=== PATIENT | female | born 1980 | race Caucasian/White ===

== ENCOUNTER 2018-03-11 09:38 | Day surgery (SDC) | payer MEDICAID, SELFPAY ==
[2018-03-11] VITALS (7 sets, daily range): BP systolic 137–152; BP diastolic 62–89; PULSE 96–99; RESP 18; TEMP 36.3–36.7; O2SAT 96; BMI 54.4
--- NOTE | 2018-03-11 11:00 | RAD_ITS ---
CLINICAL HISTORY: Female, 37 years old. Lower back pain PROCEDURE: LUMBAR EPIDUROGRAM -L5-S1 FLUOROSCOPY TIME (if supplied): (0:14) minutes. 1 Image. RADIATION DOSAGE (If Supplied By Facility): CTDIvol = ( ) mGy, DLP = ( ) mGycm TECHNIQUE: Contrast is seen in the epidural space at L5-S1. RAD/Spine 1 View Any Level IMPRESSION: Successful lumbar epidural steroid injection under fluoroscopic guidance. Electronically Signed: Fransisca Mendoza MD at 12:01 EDT Tel , Service support ,
[2018-03-11] MEDS: Triamcinolone Acetonide 40 MG/ML Vial ×2 (11:17)
--- NOTE | 2018-03-11 11:23 | SUR.OPER ---
ISOVUE [address] PEARL
== END 2018-03-11 12:06 | disposition home or self-care (01) ==
LOC: SDC 09:39 → AC 09:40
PROVIDERS: Family Provider Nurse Practitioner Family; PCP Nurse Practitioner Family; Visit Provider Anesthesiology Pain Medicine
PROC: 3E0S3BZ Introduction of Anesthetic Agent into Epidural Space, Percutaneous Approach (ICD-10-PCS; CPT 62322; principal; 2018-03-11 10:55)
DX: M51.17 Intervertebral disc disorders with radiculopathy, lumbosacral region (principal); M51.16 Intervertebral disc disorders with radiculopathy, lumbar region; I10 Essential (primary) hypertension; F17.200 Nicotine dependence, unspecified, uncomplicated; G43.909 Migraine, unspecified, not intractable, without status migrainosus; G35 Multiple sclerosis; F41.9 Anxiety disorder, unspecified; F32.9 Major depressive disorder, single episode, unspecified; Z79.891 Long term (current) use of opiate analgesic; Z79.899 Other long term (current) drug therapy
CPT/HCPCS: 62323; 64483; 72020; J7120

== ENCOUNTER → 2018-03-27 11:05 | Outpatient (CLI) | payer MEDICAID, SELFPAY ==
[2018-03-27 11:45] LABS: Amphetamine Urine VISTA NEGATIVE (<1000 ng/mL); Barbiturate Urine VISTA NEGATIVE (< 200 ng/mL); Benzodiazepine Urine VISTA POSITIVE (< 200 ng/mL); Cocaine Urine VISTA NEGATIVE (< 300 ng/mL); Ecstacy Urine VISTA NEGATIVE (< 500 ng/mL); Methadone Urine VISTA NEGATIVE (< 300 ng/mL); PCP Urine VISTA NEGATIVE (< 25 ng/mL); THC Urine VISTA POSITIVE (< 50 ng/mL); Vista UDS pH Range 5
== END ==
PROVIDERS: Family Provider Nurse Practitioner Family; PCP Nurse Practitioner Family; Visit Provider Anesthesiology Pain Medicine
DX: F11.20 Opioid dependence, uncomplicated (principal)
CPT/HCPCS: 80307

== ENCOUNTER 2025-06-08 08:10 | Day surgery (SDC) | payer MEDICAID, SELFPAY ==
[2025-06-08] VITALS (8 sets, daily range): BP systolic 111–181; BP diastolic 66–132; PULSE 16–79; RESP 16–18; TEMP 36.1–36.8; O2SAT 91–95; BMI 47.2
[2025-06-08] MEDS: Lactated Ringers 1,000 ML 15 ML IV (08:39)
--- NOTE | 2025-06-08 08:55 | PRE.ANES_ITS ---
ASA Classification* ASA Classification ASA Classification: 3 Assessment & Plan Anesthesia* Anesthesia Assessment Anesthesia Assessment: Discussed sedation and/or anesthesia options, risks, benefits, and alternatives with patient/parents/legal guardian/POA. Questions invited. The patient/parents/legal guardian/POA seems to understand and agrees to proceed with anesthesia plan. Reviewed the physical assessment, medical history, allergy history and patient home medications list prior to surgery/procedure/anesthetic and documented any changes. Performed airway and anesthesia risk assessments. Anesthesia Type Anesthesia Type: MAC History Source History Obtained from:: Patient and Chart Anesthesia Focused Assessment* Temperature: 97 F Pulse Rate: 79 Blood Pressure: 116/74 Respiratory Rate: 16 Pulse Ox: 95 Oxygen Delivery Method: Room Air Airway Assessment Mouth opens: >3 cm Mallampati Score: II Teeth Condition: Dentures and Upper Neck Range of motion (ROM): Full ROM Labs Anesthesia Preop lab: CBC WBC 10.3 K/mm3 (4.4-11.0) 11/29/16 06:15 11/29/16 RBC 3.35 M/mm3 (4.2-5.4) L 11/29/16 06:15 11/29/16 Hgb 10.1 g/dl (12.0-15.0) L 11/29/16 06:15 7 Hct 30.8 % (37-47) L 11/29/16 06:15 11/29/16 Plt Count 220 K/mm3 (150-450) 11/29/16 06:15 11/29/16 CHEMISTRY Potassium 3.2 mmol/L (3.5-5.1) L 11/29/16 06:15 11/29/16 Sodium 134 mmol/L (136-145) L 11/29/16 06:15 11/29/16 Magnesium 2.3 mg/dL (1.8-2.4) 09/06/15 06:40 09/06/15 BUN 9 mg/dL (7-18) 11/29/16 06:15 11/29/16 Creatinine 0.68 mg/dL (0.55-1.02) 11/29/16 06:15 11/29/16 Glucose 156 mg/dL (70-110) H 11/29/16 06:15 01/20/17 TSH 0.66 uIU/mL (0.358-3.74) 11/27/16 06:06 COAG PT 16.6 SECONDS (11.7-14.9) H 09/06/15 09:45 08/11 06/24 Pre-Assessment Diagnosis/Proposed Procedure Planned Operative Procedure(s): EGD, COLONOSCOPY Anesthesia History 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 When Was Last Pacemaker Check QUESTION #4 FULL TEXT: You/Your Family Experience fever (hyperthermia) with Anesthesia Last Oral Intake Last Oral intake: Last Oral Intake NPO since 05:15 06/08/25 08:29 Meds taken in AM with sips of water? Meds patient instructed to take am of surgery PONV PONV - blending tank tender helper: PONV - blending tank tender helper Female Yes 06/02/25 17:19 HX of Motion Sickness No 06/02/25 17:19 HX of N/V After Surgery No 06/02/25 17:19 Non-Smoker No 06/02/25 17:19 Duration of Surgery greater No 06/02/25 17:19 than 60 minutes Number of Risk Factors 1 06/02/25 17:19 PONV Score Low Risk 06/02/25 17:19 Height & Weight Height & Weight: Anesthesia: Height & Weight Height 5 ft 2 in 06/08/25 08:29 Weight: 117.027 kg 06/08/25 08:29 Body Mass Index (BMI) 47.2 06/08/25 08:29 Respiratory Assessment Respiratory Assessment - blending tank tender helper: Respiratory Tract Infection Hx - blending tank tender helper Hx Respiratory Tract Infection No 06/02/25 17:19 STOP Sleep Apnea STOP Sleep Apnea - blending tank tender helper: STOP Sleep Apnea - blending tank tender helper Hx Hypertension Yes: PER PT, CONTROLLED ON 06/02/25 17:19 MEDS Hx Sleep Apnea No 06/02/25 17:19 CPAP No 03/11/18 11:28 BIPAP No 03/02/18 11:21 Do you snore loudly (louder No 06/02/25 17:19 than talking or can be heard Do you often feel tired/ No 06/02/25 17:19 fatigued/ sleepy during daytime? Has anyone observed you stop No 06/02/25 17:19 breathing during sleep? STOP Results Negative 06/02/25 17:19 QUESTION #5 FULL TEXT : Do you snore loudly (louder than talking or can be heard through closed doors)? 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 Specify any problems Hx of Preganancy in last 3 No 06/02/25 17:19 Months Nurse Filling Out Transfusion MGRIFFITH 06/02/25 17:19 & Questions: Date: 06/02/25 06/02/25 17:19 Time: 17:21 06/02/25 17:19 Patient unable to answer at this time (ie. confused, unrespo /Reproduction History /Reproductive History - blending tank tender helper: /Reproductive Hx- blending tank tender helper Hx Now No 06/02/25 17:19 Gestational Age (in weeks): EDC: Hx Hx Para Hx Section SAB No 06/02/25 17:19 Active Medications Active Medications: Current Medications Generic Name Dose Route Start Last Admin Trade Name Freq PRN Reason Stop Dose Admin Lactated Ringer's 1,000 mls @ 15 mls/hr 06/08/25 08:30 06/08/25 08:39 IV 15 mls/hr .Q48H EUN Administration PFSH Medical History (Updated 06/02/25 @ 17:29 by Kirsten Watkins) ADHD Marijuana use Arthritis Fatty liver High cholesterol Migraine headache Wears partial dentures Wears dentures History of diverticulitis Gastric reflux Smoker Shortness of breath on exertion History of stress test History of echocardiogram Vitamin D deficiency Vitamin B deficiency PTSD (post-traumatic stress disorder) Osteoarthritis Insomnia GERD (gastroesophageal reflux disease) Disc disease with myelopathy Chronic fatigue Female bladder prolapse Binge eating disorder Graves disease Depression Anxiety High blood pressure Type 2 diabetes mellitus Multiple sclerosis Home Medications ?Medication ?Instructions ?Recorded ?Last Taken ?Type diazepam 5 mg tablet 10 mg PO TID PRN Anxiety 10/20/16 History trazodone 150 mg tablet 300 mg PO QHS 10/21/1610/20 History atorvastatin 10 mg tablet (Lipitor) 10 mg PO QDAY 03/10 05/04 Unknown History dulaglutide 4.5 mg/0.5 mL 4.5 mg subcut MO 03/25/25 History subcutaneous pen injector (Trulicity) fluoxetine 40 mg capsule (Prozac) 40 mg PO QAM 5 Unknown History lamotrigine 200 mg tablet 200 mg PO QDAY 03/25/25 Unkn own History (Lamictal) lisdexamfetamine 70 mg capsule 70 mg PO QAM 03/25/25 U nknown History (Vyvanse) losartan 50 mg tablet 50 mg PO QHS 03/25/25 History methimazole 5 mg tablet 5 mg PO QDAY 03/25/25 Unknow n History metoprolol succinate 50 mg 50 mg PO QDAY 03/25/2505/11 20:30 History tablet,extended release 24 hr teriflunomide 14 mg tablet 14 mg PO QDAY 03/25/25 Unkn own History (Aubagio) famotidine 40 mg tablet 40 mg PO QHS #30 tabs Unknown Rx miscellaneous medical supply 1 ea miscellaneous QHS GE RD #1 ea 05/23/25 Unknown Rx omeprazole 40 mg capsule,delayed 40 mg PO BID #60 caps 05/23/25 Unknown Rx release wedge pillow #1 ea 05/23/25 Unknown Rx Allergy/AdvReac Type Severity Reaction Status Date / Time lisinopril Allergy Intermediate Other Verified 06/08/25 08:25 adhesive tape Allergy Rash Verified 06/08/25 08:25 azithromycin (From Zithromax) Allergy Swelling Verified 06/08/25 08:25 bee pollen Allergy Anaphylaxis Verified 06/08/25 08:25 Family History Father Hypertension Cancer Mother Hypertension Surgical History (Updated 06/02/25 @ 17:19 by Kirsten Watkins) History of tonsillectomy History of colonoscopy Tubal ligation status H/O total hysterectomy History of carpal tunnel surgery of left wrist S/p total knee replacement, bilateral bladder sling S/P left knee arthroscopy History of carpal tunnel surgery of right wrist Social History (Updated 04/12/25 @ 10:05 by Shelbi Alfred NP-C) Smoking Status: Current every day smoker tobacco type: e-cigarettes Review of Systems (Anesthesia) ROS Narrative System reviewed and no additional complaints, except as documented.
--- NOTE | 2025-06-08 08:58 | PCM.HP.STD ---
HPI - General General Date of Admission: 06/08/25 Date of Service: 06/08/25 HPI Narrative SHUKRI JACK, is a 44 F who presents Chief Complaint: GERD and abdominal pain 6.3.25 OV establishment with I regarding concerns for uncontrolled acid reflux, loose stools, and due for screening colonoscopy. She reports that her mother's sister was diagnosed with colon cancer at age 42 and from it at 55. She states her last colonoscopy was 10 years ago and would like to have a different GI provider. She reports 4 to 5 loose BMs daily, of pudding to watery consistency. She deals with abdominal bloating and excess gas, denies constipation, hematochezia, and melena. She states that she experiences random cramping pains to her RLQ abdomen that radiates to her umbilicus, most of the time this cramping dissipates following a BM and it is not associated with every BM. She also reports her last EGD was done with her colonoscopy. She states that she wakes several times through the night with acid dripping from her nose with burning sensation to her nasal mucosa and esophagus. She reports daily heartburn with reflux despite being on pantoprazole. And has dysphonia, globus sensation, with occasional food trapping in her esophagus. States her PCP increased the pantoprazole dosing to 40mg daily a month ago and denies noting symptom improvement. Red sauced and acidic foods are especially triggering. She has PMHx of RRMS, Graves, DM II on Trulicity. She uses medical marijuana daily, smoking and ingesting edibles, for pain control. She has a special needs son who depends on her, so she needs prior notification to arrange care in order to have any testing. She states that she is a mother and has the support of her 2 other sons. Labs found on [facility]: 3.27.25 TSH <0.01, free T4 1.2, hgbA1c 5.8 3.12.25 LFT-ALP 126, cbc-wnl 8.9.24 TSH <0.007 7.14.25 OV She reports great improvement in heartburn, states that she wakes up maybe once every other week with stomach acid dripping from her nose. She continues to have a few sulfur burps and will only occasionally have loose stools. She has tried adding several pillows to sleep on, but through the night they all end up on the floor. She is asking for a prescription for insurance to cover a wedge pillow. She continues to take pantoprazole 40mg PO twice daily and famotidine at bedtime. She continues to be mindful of the foods she eats. [facility] Medical History ADHD Marijuana use Arthritis Fatty liver High cholesterol Migraine headache Wears partial dentures Wears dentures History of diverticulitis Gastric reflux Smoker Shortness of breath on exertion History of stress test History of echocardiogram Vitamin D deficiency Vitamin B deficiency PTSD (post-traumatic stress disorder) Osteoarthritis Insomnia GERD (gastroesophageal reflux disease) Disc disease with myelopathy Chronic fatigue Female bladder prolapse Binge eating disorder Graves disease Depression Anxiety High blood pressure Type 2 diabetes mellitus Multiple sclerosis Home Medications ?Medication ?Instructions ?Recorded ?Last Taken ?Type diazepam 5 mg tablet 10 mg PO TID PRN Anxiety 07/27/15 10/20/16 History trazodone 150 mg tablet 300 mg PO QHS 10/21/16 10/20/16 History atorvastatin 10 mg tablet (Lipitor) 10 mg PO QDAY 03/25/25 Unknown History dulaglutide 4.5 mg/0.5 mL 4.5 mg subcut MO 03/25/25 05/30/25 History subcutaneous pen injector (Trulicity) fluoxetine 40 mg capsule (Prozac) 40 mg PO QAM 03/25/25 Unknown History lamotrigine 200 mg tablet 200 mg PO QDAY 03/25/25 Unknown History (Lamictal) lisdexamfetamine 70 mg capsule 70 mg PO QAM 03/25/25 Unknown History (Vyvanse) losartan 50 mg tablet 50 mg PO QHS 03/25/25 06/07/25 History methimazole 5 mg tablet 5 mg PO QDAY 03/25/25 Unknown History metoprolol succinate 50 mg 50 mg PO QDAY 03/25/25 06/07/25 20:30 History tablet,extended release 24 hr teriflunomide 14 mg tablet 14 mg PO QDAY 03/25/25 Unknown History (Aubagio) famotidine 40 mg tablet 40 mg PO QHS #30 tabs 05/23/25 Unknown Rx miscellaneous medical supply 1 ea miscellaneous QHS GERD #1 ea 05/23/25 Unknown Rx omeprazole 40 mg capsule,delayed 40 mg PO BID #60 caps 05/23/25 Unknown Rx release wedge pillow #1 ea 05/23/25 Unknown Rx Allergy/AdvReac Type Severity Reaction Status Date / Time lisinopril Allergy Intermediate Other Verified 06/08/25 08:25 adhesive tape Allergy Rash Verified 06/08/25 08:25 azithromycin (From Zithromax) Allergy Swelling Verified 06/08/25 08:25 bee pollen Allergy Anaphylaxis Verified 06/08/25 08:25 Family History Father Hypertension Cancer Mother Hypertension Surgical History History of tonsillectomy History of colonoscopy Tubal ligation status H/O total hysterectomy History of carpal tunnel surgery of left wrist S/p total knee replacement, bilateral bladder sling S/P left knee arthroscopy History of carpal tunnel surgery of right wrist Social History Smoking Status: Current every day smoker tobacco type: e-cigarettes ROS Constitutional Constitutional: Denies fatigue, fever(s), poor appetite, weight gain or weight loss Gastrointestinal Gastrointestinal: Denies belching, bloating, change in bowel habits, change in stool character, chewing difficulty, coffee ground emesis, constipation, cramping, diarrhea, dyspepsia, dysphagia, early satiety, excessive flatus, fecal incontinence, heartburn, hematemesis, hematochezia, hemorrhoids, loose stools, melena, nausea, odynophagia, rectal bleeding, tenesmus, vomiting or weight changes Vital Signs Vital Signs Vital Signs: 06/08/25 08:29 06/08/25 08:29 06/08/25 08:58 Temperature 97 F L 97 F L Temperature Source Temporal Pulse Rate 79 79 Respiratory Rate 16 16 Respiratory Pattern Normal Blood Pressure 116/74 116/74 Blood Pressure Mean 88 Blood Pressure Source Monitor Blood Pressure Position Semi-Fowlers Blood Pressure Location Left Arm Pulse Ox 95 95 Oxygen Delivery Method Room Air Room Air Weight Weight: 258 lb Body Mass Index (BMI) 47.2 Physical Exam Const alert, oriented x3, no apparent distress and healthy appearing General Appearance: cooperative GI normal to inspection, nondistended, normoactive bowel sounds, soft to palpation, non-tender and non-distended Percussion: normal to percussion Rectal Exam: deferred Results Lab / Micro Data Labs: Laboratory Results - last 24 hr 06/08/25 08:33: POC Glucose 128 H Assessment & Plan Assessment/Plan (1) GERD (gastroesophageal reflux disease): QUALIFIERS: Esophagitis presence: esophagitis presence not specified Qualified Code(s): K21.9 - Gastro-esophageal reflux disease without esophagitis PLAN: Assessment and Plan Assessment and Plan (1) GERD (gastroesophageal reflux disease): Status: Chronic Qualifiers: Esophagitis presence: esophagitis presence not specified Qualified Code(s): K21.9 - Gastro-esophageal reflux disease without esophagitis Comment: EGD scheduled 06.08.25 Medications: New miscellaneous medical supply Wedge pillow for head elevation during sleep to reduce acid reflux into esophagus. 1 ea miscellaneous QHS 1 ea 0RF GERD [wedge pillow] Wedge pillow QHS to reduce acid reflux into esophagus and nares. 1 ea 0RF GERD Refilled famotidine 40 mg PO QHS 30 tabs 5RF omeprazole 40 mg PO BID 60 caps 5RF Plan SHUKRI JACK, is a 44 F who presents to the office today for FU. She presents to review medication adjustment today. She is accompanied by her special needs son, Mario. Discussed with her to continue current care plan. Rx for wedge pillow to elevate her head while sleeping d/t acid reflux consider placing pillows under fitted sheet to secure since unable to physically raise the head of her bed on blocks (cinder, wood, etc.) continue pantoprazole 40mg PO twice 30minutes before eating breakfast and dinner continue famotidine 40mg PO QHS maintain EGD appointment on 06.08.25 office FU 2wks after EGD
--- NOTE | 2025-06-08 09:15 | EGD_PTH ---
PATIENT: SHUKRI JACK LOC: EN U#:[id number] AGE/SX: 44/F ROOM: RE06/08/[address]: Dr. Juancarlos Moura DO : 1980 BED: DIS: 06/08/2025 SPEC #: [id number] RECD: 06/08/25 11:54 STATUS: ASHLEY REChris #: [id number] GALO: 06/08/25 09:[address]: Juancarlos Moura DEPT: SURGICAL PATHOLOGY RECD BY: Ruddy Mack ENTERED: 06/08/25 13:33 SP TYPE: EGD BIOPSY GASTON DR: Marsha Ying, LEAD MANUFACTURING ENGINEER-C Tissues: A - Esophagus, NOS Procedures: Surgery Specimen Level IV HEADER OPERATION: Colonoscopy, EGD with biopsy PRE-OP DIAGNOSIS: GERD TISSUE SUBMITTED: A- Distal esophagus biopsy MICROSCOPIC DIAGNOSIS A. Distal esophagus, biopsy: - Columnar mucosa negative for goblet cell metaplasia and dysplasia. - No squamous mucosa observed. MICROSCOPIC DESCRIPTION Slides are reviewed. GROSS DESCRIPTION A. Received in fixative is one container labeled with the patient's name and designated Distal esophagus biopsy. The specimen consists of two irregular fragments of light james soft tissue that in aggregate measure 0.3 and 0.4 cm. The specimen is totally submitted in one cassette. [facility] 06/08/2025 CPT:96130
--- NOTE | 2025-06-08 10:13 | OP.PROVAT_ITS ---
06/08/2025 Abram Bravo Re : Upper GI endoscopy procedure for Carol Iverson Dear Stepan This procedure was performed on Sunday, June 08, 2025. My impressions and recommendations are as follows: Impressions : - Z-line irregular, 40 cm from the incisors. Biopsied. - No gross lesions in the entire stomach. - No gross lesions in the entire examined duodenum. Recommendations : - Discharge patient to home. - Resume previous diet. - Continue present medications. - Await pathology results. My findings are described in the full procedure note, which is enclosed. If I can be of further assistance, please feel free to contact me at . Sincerely, Juancarlos Moura, 06/08/2025 10:12:40 AM This report has been signed electronically.
--- NOTE | 2025-06-08 10:13 | OP.EGD_ITS ---
Patient Name: Carol Iverson Procedure Date: 06/08/2025 9:36 AM Date of : 1980 Age: 44 Procedure: Upper GI endoscopy Indications: Epigastric abdominal pain, Heartburn Providers: Juancarlos Moura DO Referring MD: Juancarlos Moura DO Medicines: Monitored Anesthesia Care Patient Profile: This is a 44 year old female. Refer to note in patient chart for documentation of history and physical. Patient has symptoms of chronic dyspepsia, chronic heartburn and chronic nausea. Complications: No immediate complications. Procedure: Pre-Anesthesia Assessment: - Prior to the procedure, a History and Physical was performed, and patient medications and allergies were reviewed. The patient is competent. The risks and benefits of the procedure and the sedation options and risks were discussed with the patient. All questions were answered and informed consent was obtained. Patient identification and proposed procedure were verified by the physician in the pre-procedure area. Mental Status Examination: alert and oriented. Airway Examination: normal oropharyngeal airway and neck mobility. Respiratory Examination: clear to auscultation. CV Examination: normal. Prophylactic Antibiotics: The patient does not require prophylactic antibiotics. Prior Anticoagulants: The patient has taken no anticoagulant or antiplatelet agents. ASA Grade Assessment: II - A patient with mild systemic disease. After reviewing the risks and benefits, the patient was deemed in satisfactory condition to undergo the procedure. The anesthesia plan was to use monitored anesthesia care (MAC). Immediately prior to administration of medications, the patient was re-assessed for adequacy to receive sedatives. The heart rate, respiratory rate, oxygen saturations, blood pressure, adequacy of pulmonary ventilation, and response to care were monitored throughout the procedure. The physical status of the patient was re-assessed after the procedure. After obtaining informed consent, the endoscope was passed under direct vision. Throughout the procedure, the patient's blood pressure, pulse, and oxygen saturations were monitored continuously. The Colonoscope was introduced through the mouth, and advanced to the second part of duodenum. The upper GI endoscopy was accomplished without difficulty. The patient tolerated the procedure well. Scope In: 9:53:57 AM Scope Out: 9:56:37 AM Total Procedure Duration Time 0 hours 2 minutes 40 seconds Findings: The Z-line was irregular and was found 40 cm from the incisors. Biopsies were taken with a cold forceps for histology. Verification of patient identification for the specimen was done. Estimated blood loss was minimal. No gross lesions were noted in the entire examined stomach. No gross lesions were noted in the entire examined duodenum. Impression: - Z-line irregular, 40 cm from the incisors. Biopsied. - No gross lesions in the entire stomach. - No gross lesions in the entire examined duodenum. Recommendation: - Discharge patient to home. - Resume previous diet. - Continue present medications. - Await pathology results. Procedure Code(s): --- Professional --- 44523, Esophagogastroduodenoscopy, flexible, transoral; with biopsy, single or multiple CPT copyright 2021 [employer]. All rights reserved. The codes documented in this report are preliminary and upon tandem mill roller review may be revised to meet current compliance requirements. Juancarlos Moura DO 06/08/2025 10:12:40 AM This report has been signed electronically. Number of Addenda: 0 Note Initiated On: 06/08/2025 9:36 AM
--- NOTE | 2025-06-08 10:14 | OP.COLON_ITS ---
Patient Name: Carol Iverson Procedure Date: 06/08/2025 9:56 AM Date of : 1980 Age: 44 Procedure: Colonoscopy Indications: Screening for colorectal malignant neoplasm Providers: Juancarlos Moura DO Referring MD: Juancarlos Moura DO Medicines: Monitored Anesthesia Care Patient Profile: This is a 44 year old female. Refer to note in patient chart for documentation of history and physical. Patient has symptoms of chronic dyspepsia, chronic heartburn and chronic nausea. Last Colonoscopy: more than 10 years ago. Complications: No immediate complications. Procedure: Pre-Anesthesia Assessment: - Prior to the procedure, a History and Physical was performed, and patient medications and allergies were reviewed. The patient is competent. The risks and benefits of the procedure and the sedation options and risks were discussed with the patient. All questions were answered and informed consent was obtained. Patient identification and proposed procedure were verified by the physician in the pre-procedure area. Mental Status Examination: alert and oriented. Airway Examination: normal oropharyngeal airway and neck mobility. Respiratory Examination: clear to auscultation. CV Examination: normal. Prophylactic Antibiotics: The patient does not require prophylactic antibiotics. Prior Anticoagulants: The patient has taken no anticoagulant or antiplatelet agents. ASA Grade Assessment: II - A patient with mild systemic disease. After reviewing the risks and benefits, the patient was deemed in satisfactory condition to undergo the procedure. The anesthesia plan was to use monitored anesthesia care (MAC). Immediately prior to administration of medications, the patient was re-assessed for adequacy to receive sedatives. The heart rate, respiratory rate, oxygen saturations, blood pressure, adequacy of pulmonary ventilation, and response to care were monitored throughout the procedure. The physical status of the patient was re-assessed after the procedure. After I obtained informed consent, the scope was passed under direct vision. Throughout the procedure, the patient's blood pressure, pulse, and oxygen saturations were monitored continuously. The Colonoscope was introduced through the anus and advanced to the cecum, identified by appendiceal orifice and ileocecal valve. The colonoscopy was performed without difficulty. The patient tolerated the procedure well. The quality of the bowel preparation was adequate. The ileocecal valve, appendiceal orifice, and rectum were photographed. Scope In: 9:57:44 AM Scope Withdrawal Time 0 hours 6 minutes 26 seconds Scope Out: 10:07:14 AM Total Procedure Duration Time 0 hours 9 minutes 30 seconds Findings: The perianal and digital rectal examinations were normal. A few small-mouthed diverticula were found in the recto-sigmoid colon and sigmoid colon. The exam was otherwise without abnormality on direct and retroflexion views. Impression: - Diverticulosis in the recto-sigmoid colon and in the sigmoid colon. - The examination was otherwise normal on direct and retroflexion views. - No specimens collected. Recommendation: - Discharge patient to home. - Resume previous diet. - Continue present medications. - Repeat colonoscopy in 10 years for screening purposes. Procedure Code(s): --- Professional --- G0121, Colorectal cancer screening; colonoscopy on individual not meeting criteria for high risk CPT copyright 2021 [employer]. All rights reserved. The codes documented in this report are preliminary and upon director of health care marketing review may be revised to meet current compliance requirements. Juancarlos Moura DO 06/08/2025 10:14:14 AM This report has been signed electronically. Number of Addenda: 0 Note Initiated On: 06/08/2025 9:56 AM
--- NOTE | 2025-06-08 10:15 | OP.PROVAT_ITS ---
06/08/2025 Abram Bravo Re : Colonoscopy procedure for Carol Iverson Dear Stepan This procedure was performed on Sunday, June 08, 2025. My impressions and recommendations are as follows: Impressions : - Diverticulosis in the recto-sigmoid colon and in the sigmoid colon. - The examination was otherwise normal on direct and retroflexion views. - No specimens collected. Recommendations : - Discharge patient to home. - Resume previous diet. - Continue present medications. - Repeat colonoscopy in 10 years for screening purposes. My findings are described in the full procedure note, which is enclosed. If I can be of further assistance, please feel free to contact me at . Sincerely, Juancarlos Moura, 06/08/2025 10:14:14 AM This report has been signed electronically.
--- NOTE | 2025-06-08 10:19 | PCM.POST.ANE ---
Anesthesia: Postop Eval I Current Vital Signs Temperature: 97.8 F Pulse Rate: 16 Blood Pressure: 117/105 Respiratory Rate: 16 Pulse Ox: 93 Oxygen Delivery Method: Room Air Assessment Airway patent: Yes Spontaneous unlabored respirations: Yes Mental status: Asleep nausea: No Vomiting: No Anesthesia Complication: No Fluid Hydration Crystalloid volume administer (ml): 700 Total IV fluid infused: 700 Progress Note Anesthesia document: Postop Eval 1 completed: Yes
--- NOTE | 2025-06-08 10:43 | PCM.POSTANE2 ---
Anesthesia Postop Eval I Sum Postop Eval Completion status Anesthesia document: Postop Eval 1 completed: Yes Anesthesia Postop Eval I Summary Anesthesia Postop Eval I Summary: Anesthesia Postop Eval I: Assessment Summary Airway patent Yes 06/08/25 10:19 [email or web address] Spontaneous unlabored Yes 06/08/25 10:19 [email or web address] respirations Mental status Asleep 06/08/25 10:19 [email or web address] nausea No 06/08/25 10:19 [email or web address] Vomiting No 06/08/25 10:19 [email or web address] Anesthesia Postop Eval I: Fluid Summary Crystalloid volume administer 700 06/08/25 10:19 [email or web address] (ml) Colloids volume administered ( ml) Blood Product volume administered (ml) Total IV fluid infused 700 06/08/25 10:19 [email or web address] Anesthesia Postop Eval I: Summary Notes Anesthesia Complication No 06/08/25 10:19 [email or web address] Anesthesia Complication Comment: Post-operative progress note Anesthesia: Postop Eval II Evaluation Mental status: Awake and Calm Pain Level: 0 nausea: No Vomiting: No Complications Anesthesia Complication: No
== END 2025-06-08 11:10 | disposition home or self-care (01) ==
LOC: EN 08:12 → AC 08:14
PROVIDERS: PCP Nurse Practitioner Family; Referring Provider Nurse Practitioner Family; Visit Provider Internal Medicine Gastroenterology
PROC: 0DJD8ZZ Inspection of Lower Intestinal Tract, Via Natural or Artificial Opening Endoscopic (ICD-10-PCS; CPT 45378; principal; 2025-06-08 09:10)
DX: Z12.11 Encounter for screening for malignant neoplasm of colon (principal); G35 Multiple sclerosis; E11.9 Type 2 diabetes mellitus without complications; K21.9 Gastro-esophageal reflux disease without esophagitis; R19.5 Other fecal abnormalities; K57.30 Diverticulosis of large intestine without perforation or abscess without bleeding; Z80.0 Family history of malignant neoplasm of digestive organs; I10 Essential (primary) hypertension; K76.0 Fatty (change of) liver, not elsewhere classified; F90.9 Attention-deficit hyperactivity disorder, unspecified type; F43.10 Post-traumatic stress disorder, unspecified; F32.A Depression, unspecified; F41.9 Anxiety disorder, unspecified; E05.00 Thyrotoxicosis with diffuse goiter without thyrotoxic crisis or storm; E78.00 Pure hypercholesterolemia, unspecified; G47.10 Hypersomnia, unspecified; F17.290 Nicotine dependence, other tobacco product, uncomplicated; Z87.19 Personal history of other diseases of the digestive system; Z79.85 Long-term (current) use of injectable non-insulin antidiabetic drugs; Z79.899 Other long term (current) drug therapy; Z79.890 Hormone replacement therapy
CPT/HCPCS: 45378; 43239; 82962; 88305; J2405